=== PATIENT | female | born 1985 | race Caucasian/White ===

== ENCOUNTER 2021-09-04 15:32 | Emergency (ER) | payer OTHER ==
[~2021-09-04] VITALS: Ht 177.8 cm; Wt 77.1 kg
== END 2021-09-04 19:47 | disposition home or self-care (01) ==
LOC: ER 15:32
DX: S01.81XA Laceration without foreign body of other part of head, initial encounter (principal); W17.81XA Fall down embankment (hill), initial encounter; Y93.31 Activity, mountain climbing, rock climbing and wall climbing; Y92.830 Public park as the place of occurrence of the external cause